=== PATIENT | male | born 1950 | race Caucasian/White ===

== ENCOUNTER 2018-09-24 14:37 | Inpatient (IN) | payer MEDICARE, OTHER ==
[2018-09-24] MEDS ORDERED: Diltiazem 25 MG/5 ML SDV IVPUSH ONE ×2 (15:02→19:39)
--- NOTE | 2018-09-24 15:10 | EDM.PDOC ---
ED HPI GENERAL MEDICAL PROBLEM - General Chief Complaint: Respiratory Problem Stated Complaint: SOB Time Seen by Provider: 09/24/18 14:45 Source of Information: Reports: Patient History Limitations: Reports: No Limitations - History of Present Illness INITIAL COMMENTS - FREE TEXT/NARRATIVE: 67-year-old male, history of COPD who has been O2 dependent in the past has quit smoking since 2004. Over the past 48 hours he's had increasing shortness of breath, pleuritic chest pain with breathing, and weakness. He has a persistent cough which is nonproductive. Denies fevers or chills. Denies nausea or vomiting. He continues to use his nebulizer which provides him temporary benefit. Onset: Gradual Duration: Day(s): (Last several days) Associated Symptoms: Reports: Chest Pain Chest Pain Score (Numeric/FACES): 4 - Related Data Allergies Allergy/AdvReac Type Severity Reaction Status Date / Time indomethacin [From Indocin] AdvReac Nausea Verified 09/24/18 14:48 Home Meds: Home Meds Albuterol Sulfate [Proair Respiclick] 90 mcg IH BID PRN 05/17/16 [History] Aspirin [Halfprin] 81 mg PO DAILY PRN 05/17/16 [History] Budesonide/Formoterol [Symbicort 160-4.5 MCG] 2 inh INH BID 05/17/16 [History] Past Medical History Cardiovascular History: Reports: High Cholesterol, Hypertension Respiratory History: Reports: COPD, Other (See Below) Other Respiratory History: home O2 at night Oncologic (Cancer) History: Reports: Other (See Below) Other Oncologic History: soft palate cancer - Infectious Disease History Infectious Disease History: Reports: Chicken Pox, Measles - Past Surgical History HEENT Surgical History: Reports: Tonsillectomy Musculoskeletal Surgical History: Reports: Knee Replacement Social & Family History - Family History Family Medical History: Noncontributory - Tobacco Use Smoking Status *Q: Former Smoker Used Tobacco, but Quit: Yes Month/Year Tobacco Last Used: 2004 - Caffeine Use Caffeine Use: Reports: Coffee Other Caffeine Use: 25cups - Alcohol Use Days Per Week of Alcohol Use: 5 Number of Drinks Per Day: 12 Total Drinks Per Week: 60 - Recreational Drug Use Recreational Drug Use: No ED ROS GENERAL - Review of Systems Review Of Systems: See Below Constitutional: Reports: Malaise, Weakness. Denies: Fever, Chills HEENT: Denies: Nosebleed, Throat Pain Respiratory: Reports: Shortness of Breath, Cough. Denies: Sputum Cardiovascular: Reports: Chest Pain GI/Abdominal: Denies: Abdominal Pain, Nausea, Vomiting : Reports: No Symptoms Skin: Denies: Cyanosis, Pallor Neurological: Reports: Weakness. Denies: Headache ED EXAM, GENERAL - Physical Exam Exam: See Below Exam Limited By: No Limitations General Appearance: Alert, Mild Distress Head: Atraumatic Respiratory/Chest: Respiratory Distress (Mild increased respiratory effort and distress, O2 saturations 98%), Wheezing (Diffuse expiratory wheezes bilaterally) Cardiovascular: Tachycardia, Irregularly Irregular GI/Abdominal: Soft, Non-Tender Extremities: Normal Inspection. No: Pedal Edema Neurological: Alert, Oriented, No Motor/Sensory Deficits Psychiatric: Anxious Skin Exam: Warm, Dry Course - Vital Signs Last Recorded V/S: Last Vital Signs Temp 96.4 F 09/25/18 04:00 Pulse 79 09/25/18 05:46 Resp 20 09/25/18 05:46 BP 99/42 L 09/25/18 05:46 Pulse Ox 95 09/25/18 05:46 - Orders/Labs/Meds Orders: Active Orders 24 hr Category Date Time Status Azithromycin [Zithromax] Med 09/24/18 17:00 Active 500 mg PO DAILY Diltiazem [Cardizem] 100 mg Med 09/24/18 15:45 Active Sodium Chloride 0.9% [Normal Saline] 100 ml IV TITRATE EKG 12 Lead [EK] Routine Ther 09/24/18 15:02 Stop Req Medication Orders Acetaminophen (Tylenol) 650 mg PO Q4H PRN PRN Reason: Pain (Mild 1-3)/fever Last Admin: 09/24/18 19:44 Dose: 650 mg Albuterol (Proventil Neb Soln) 2.5 mg NEB Q4H PRN PRN Reason: Shortness Of Breath/wheezing Last Admin: 09/25/18 03:19 Dose: 2.5 mg Admin: 09/24/18 18:35 Dose: 2.5 mg Albuterol/Ipratropium (Duoneb 3.0-0.5 Mg/3 Ml) 3 ml NEB QIDRT [facility]IVIER Last Admin: 09/24/18 21:05 Dose: 3 ml Azithromycin (Zithromax) 500 mg PO DAILY [facility] Last Admin: 09/24/18 17:48 Dose: 500 mg Benzonatate (Tessalon Perles) 100 mg PO TID PRN PRN Reason: Cough Last Admin: 09/24/18 18:34 Dose: 100 mg Enoxaparin Sodium (Lovenox) 40 mg SUBCUT Q24H [facility] Guaifenesin/Dextromethorphan (Robitussin Dm) 10 ml PO Q4H PRN PRN Reason: Cough Last Admin: 09/25/18 03:17 Dose: 10 ml Admin: 09/24/18 23:10 Dose: 10 ml Diltiazem HCl 100 mg/ Sodium (Chloride) 100 mls @ 5 mls/hr IV TITRATE OLIVIER; Protocol Last Titration: 09/25/18 06:16 Dose: 0 mg/hr, 0 mls/hr Titration: 09/25/18 05:45 Dose: 3 mg/hr, 3 mls/hr Titration: 09/25/18 03:07 Dose: 5 mg/hr, 5 mls/hr Titration: 09/25/18 01:09 Dose: 10 mg/hr, 10 mls/hr Admin: 09/24/18 23:39 Dose: 15 mg/hr, 15 mls/hr Titration: 09/24/18 23:39 Dose: 15 mg/hr, 15 mls/hr Titration: 09/24/18 20:00 Dose: 15 mg/hr, 15 mls/hr Titration: 09/24/18 19:00 Dose: 10 mg/hr, 10 mls/hr Admin: 09/24/18 17:32 Dose: 5 mg/hr, 5 mls/hr Ceftriaxone Sodium 2 gm/ (Sodium Chloride) 50 mls @ 100 mls/hr IV Q24H [facility] Last Admin: 09/24/18 17:56 Dose: 100 mls/hr Sodium Chloride (Normal Saline) 1,000 mls @ 100 mls/hr IV ASDIRECTED [facility] Last Admin: 09/24/18 23:15 Dose: 100 mls/hr Ibuprofen (Motrin) 600 mg PO Q6H PRN PRN Reason: Pain/Fever Last Admin: 09/24/18 18:39 Dose: 600 mg Lorazepam (Ativan) 0.5 mg PO Q4H PRN PRN Reason: Anxiety Last Admin: 09/25/18 03:35 Dose: 0.5 mg Admin: 09/24/18 21:02 Dose: 0.5 mg Morphine Sulfate (Morphine) 4 mg IVPUSH Q4H PRN PRN Reason: air hunger Last Admin: 09/25/18 03:22 Dose: 4 mg Admin: 09/24/18 23:09 Dose: 4 mg Ondansetron HCl (Zofran Odt) 4 mg PO Q6H PRN PRN Reason: Nausea able to take PO Prednisone (Prednisone) 20 mg PO BIDAC OLIVIER Senna/Docusate Sodium (Senna Plus) 1 tab PO BID PRN PRN Reason: Constipation Labs: Laboratory Tests 09/24/18 09/24/18 Range/Units 15:10 15:10 WBC 8.3 (4.5-11.0) K/uL RBC 4.56 (4.30-5.90) M/uL Hgb 12.6 D (12.0-15.0) g/dL Hct 39.9 L (40.0-54.0) % MCV 88 (80-98) fL MCH 28 (27-31) pg MCHC 32 (32-36) % Plt Count 436 H (150-400) K/uL Neut % (Auto) 70 H (36-66) % Lymph % (Auto) 17 L (24-44) % Martin % (Auto) 11 H (2-6) % Eos % (Auto) 2 (2-4) % Baso % (Auto) 1 (0-1) % Sodium 136 L (140-148) mmol/L Potassium 4.0 (3.6-5.2) mmol/L Chloride 100 (100-108) mmol/L Carbon Dioxide 25 (21-32) mmol/L Anion Gap 15.0 H (5.0-14.0) mmol/L BUN 10 (7-18) mg/dL Creatinine 1.1 (0.8-1.3) mg/dL Est Cr Clr Drug Dosing 71.63 mL/min Estimated GFR (MDRD) > 60 (>60) Glucose 109 H (74-106) mg/dL Calcium 9.2 (8.5-10.1) mg/dL Total Bilirubin 0.8 D (0.2-1.0) mg/dL AST 16 (15-37) U/L ALT 13 (12-78) U/L Alkaline Phosphatase 69 (46-116) U/L Troponin I 0.087 H* (0.000-0.056) ng/mL Total Protein 7.7 (6.4-8.2) g/dL Albumin 3.0 L (3.4-5.0) g/dL Globulin 4.7 H (2.3-3.5) g/dL Albumin/Globulin Ratio 0.6 L (1.2-2.2) TSH, Ultra Sensitive 0.893 (0.358-3.740) uIU/mL Meds: Medications Generic Name Dose Route Start Last Admin Trade Name Freq PRN Reason Stop Dose Admin Acetaminophen 650 mg 09/24/18 17:10 09/24/18 19:44 Tylenol PO 650 mg Q4H PRN Administration Pain (Mild 1-3)/fever Albuterol 2.5 mg 09/24/18 17:10 09/25/18 03:19 Proventil Neb Soln NEB 2.5 mg Q4H PRN Administration Shortness Of Breath/wheezing Albuterol/Ipratropium 3 ml 09/24/18 21:00 09/24/18 21:05 Duoneb 3.0-0.5 Mg/3 Ml NEB 3 ml QIDRT OLIVIER Administration Azithromycin 500 mg 09/24/18 17:00 09/24/18 17:48 Zithromax PO 500 mg DAILY [facility] Administration Benzonatate 100 mg 09/24/18 17:10 09/24/18 18:34 Tessalon Perles PO 100 mg TID PRN Administration Cough Enoxaparin Sodium 40 mg 09/25/18 18:00 Lovenox SUBCUT Q24H [facility] Guaifenesin/Dextromethorphan 10 ml 09/24/18 17:10 09/25/18 03:17 Robitussin Dm PO 10 ml Q4H PRN Administration Cough Diltiazem HCl 100 mg/ Sodium 100 mls @ 5 mls/hr 09/24/18 15:45 09/25/18 06:16 Chloride IV 0 mg/hr TITRATE OLIVIER 0 mls/hr Titration Protocol 5 MG/HR Ceftriaxone Sodium 2 gm/ 50 mls @ 100 mls/hr 09/24/18 18:00 09/24/18 17:56 Sodium Chloride IV 100 mls/hr Q24H OLIVIER Administration Sodium Chloride 1,000 mls @ 100 mls/hr 09/24/18 17:10 09/24/18 23:15 Normal Saline IV 100 mls/hr ASDIRECTED OLIVIER Administration Ibuprofen 600 mg 09/24/18 17:10 09/24/18 18:39 Motrin PO 600 mg Q6H PRN Administration Pain/Fever Lorazepam 0.5 mg 09/24/18 20:42 09/25/18 03:35 Ativan PO 0.5 mg Q4H PRN Administration Anxiety Morphine Sulfate 4 mg 09/24/18 20:42 09/25/18 03:22 Morphine IVPUSH 4 mg Q4H PRN Administration air hunger Ondansetron HCl 4 mg 09/24/18 17:10 Zofran Odt PO Q6H PRN Nausea able to take PO Prednisone 20 mg 09/25/18 07:30 Prednisone PO BIDAC OLIVIER Senna/Docusate Sodium 1 tab 09/24/18 17:10 Senna Plus PO BID PRN Constipation Discontinued Medications Generic Name Dose Route Start Last Admin Trade Name Freq PRN Reason Stop Dose Admin Albuterol/Ipratropium 3 ml 09/24/18 15:31 09/24/18 15:39 Duoneb 3.0-0.5 Mg/3 Ml NEB 09/24/18 15:32 3 ml ONETIME ONE Administration Diltiazem HCl 25 mg 09/24/18 15:02 09/24/18 15:12 Diltiazem IVPUSH 09/24/18 15:03 25 mg ONETIME ONE Administration Diltiazem HCl 5 mg 09/24/18 19:39 09/24/18 19:56 Diltiazem IVPUSH 09/24/18 19:40 5 mg ONETIME ONE Administration Enoxaparin Sodium 40 mg 09/24/18 18:00 09/24/18 17:49 Lovenox SUBCUT 40 mg DAILY [facility] Administration Sodium Chloride 1,000 mls @ 250 mls/hr 09/24/18 15:15 09/24/18 15:12 Normal Saline IV 250 mls/hr ASDIRECTED [facility] Administration Prednisone 40 mg 09/24/18 16:44 09/24/18 17:47 Prednisone PO 09/24/18 16:45 40 mg ONETIME ONE Administration - Re-Assessments/Exams Free Text/Narrative Re-Assessment/Exam: 09/24/18 15:12 EKG will be done, IV started and the patient will receive treatment for atrial fibrillation with rapid ventricular response as well as COPD exacerbation and reactive airways. CBC, CMP, troponin obtained as well as a TSH, and then given 25 mg of IV Cardizem. After rate is reduced, a DuoNeb will be given. One view chest x-ray planned. 09/24/18 15:45 EKG confirmed atrial fibrillation. One view chest x-ray showed hyperinflation but no infiltrate effusion or pneumothorax. Troponin returned 0.087, he had excellent rate control with the 25 mg of IV Cardizem but after the nebulizer started to increase his rate again. A Cardizem drip was then started at 5 mg an hour. His case was discussed with Dr. Park of the hospitalist service, he'll evaluate the patient for likely admission. Departure - Departure Time of Disposition: 17:10 Disposition: Admitted As Inpatient 64 Condition: Fair Clinical Impression: Atrial fibrillation with RVR, COPD exacerbation - Discharge Information - My Orders Last 24 Hours: My Active Orders 09/24/18 15:02 EKG 12 Lead [EK] Routine 09/24/18 15:45 Diltiazem [Cardizem] 100 mg Sodium Chloride 0.9% [Normal Saline] 100 ml IV TITRATE - Assessment/Plan Last 24 Hours: My Active Orders 09/24/18 15:02 EKG 12 Lead [EK] Routine 09/24/18 15:45 Diltiazem [Cardizem] 100 mg Sodium Chloride 0.9% [Normal Saline] 100 ml IV TITRATE
[2018-09-24] MEDS ORDERED: Sodium Chloride 0.9% 1,000 ML IV SCH (15:15)
[2018-09-24] MEDS ORDERED: Albuterol/Ipratropium 3.0-0.5 MG/3 ML Neb Soln NEB ONE (15:31)
--- NOTE | 2018-09-24 16:06 | CRLCR ---
CHEST 1 VIEW AP INDICATION: Dyspnea IMPRESSION: Normal heart size and vascular pattern. No pulmonary consolidation. No pneumothorax or pleural effusion. ECG Monitor leads projected over the patient. FINDINGS: Lordotic views obtained. Symmetric bronchial wall thickening are interstitial reticulation at the bases. This could be related to the fibrotic or obstructive disease. Lungs appear to be somewhat hyper aerated. Cardiovascular silhouette is normal. Dictated by Abimael Bonilla MD @ Sep 24 2018 4:06PM Signed by Dr. Abimael Bonilla @ Sep 24 2018 4:06PM
[2018-09-24] MEDS ORDERED: predniSONE 20 MG Tab PO ONE (16:44)
--- NOTE | 2018-09-24 17:00 | PCM.HP ---
H&P History of Present Illness - General Date of Service: 09/24/18 Admit Problem/Dx: Admission Diagnosis/Problem Admission Diagnosis/Problem Acute exacerbation of chronic obstructive airways disease - History of Present Illness Initial Comments - Free Text/Narative: Anthony presents to the emergency room today with 4-5 days of worsening shortness of breath. He reports that he has been short of breath for a long time but much more short of breath last few days. He has a productive cough with moderate sputum production, especially when he lays down. He is now short of breath with minimal activity and takes several minutes to recover after walking 10 feet or less. He has mild to moderate pleuritic type chest pain in the anterior chest. This is worse when he is trying to catch his breath. Minimal pain when he is taking shallow breath. Please tried aspirin at home but that hasn't helped his pain. Moving makes it worse. Appetite has been good. He hasn't had any fevers. No change in bowel or bladder habits. No complaints of nausea. No headaches or lower extremity edema. No sick contacts. No palpitations. Workup in the emergency room revealed atrial fibrillation with a rapid ventricular response. Heart rate was up to the 180s at times. It has slowed down after a diltiazem bolus. He is also wheezing and in mild respiratory distress. He has received a DuoNeb. He will be admitted for management of atrial fibrillation and bronchitis with a COPD exacerbation. Troponin level was very mildly elevated at 0.087. - Related Data Allergies/Adverse Reactions: Allergies Allergy/AdvReac Type Severity Reaction Status Date / Time indomethacin [From Indocin] AdvReac Nausea Verified 09/24/18 14:48 Home Medications: Home Meds Albuterol Sulfate [Proair Respiclick] 90 mcg IH BID PRN 05/17/16 [History] Aspirin [Halfprin] 81 mg PO DAILY PRN 05/17/16 [History] Budesonide/Formoterol [Symbicort 160-4.5 MCG] 2 inh INH BID 05/17/16 [History] Past Medical History Cardiovascular History: Reports: High Cholesterol, Hypertension Respiratory History: Reports: COPD, Other (See Below) Other Respiratory History: home O2 at night Oncologic (Cancer) History: Reports: Other (See Below) Other Oncologic History: soft palate cancer - Infectious Disease History Infectious Disease History: Reports: Chicken Pox, Measles - Past Surgical History HEENT Surgical History: Reports: Tonsillectomy Musculoskeletal Surgical History: Reports: Knee Replacement Social & Family History - Family History Family Medical History: Noncontributory - Tobacco Use Smoking Status *Q: Former Smoker Used Tobacco, but Quit: Yes Month/Year Tobacco Last Used: 2004 - Caffeine Use Caffeine Use: Reports: Coffee Other Caffeine Use: 25cups - Alcohol Use Days Per Week of Alcohol Use: 5 Number of Drinks Per Day: 12 Total Drinks Per Week: 60 - Recreational Drug Use Recreational Drug Use: No H&P Review of Systems - Review of Systems: Review Of Systems: See Below Free Text/Narrative: A complete 12 point review of systems was obtained. Pertinent positives and negatives are noted in the history of present illness. All other systems were reviewed and were negative except as noted. Exam - Exam Exam: See Below - Vital Signs Vital Signs: Last Vital Signs Temp 36.2 C 09/24/18 14:41 Pulse 166 H 09/24/18 14:41 Resp BP 127/94 H 09/24/18 14:41 Pulse Ox 98 09/24/18 14:41 Weight: 88.451 kg - Exam Quality Assessment: No: Supplemental Oxygen General: Alert, Oriented, Cooperative, Mild Distress (Increased work of breathing) HEENT: Conjunctiva Clear. No: Mucosa Moist & [place] (dry), Scleral Icterus Neck: Supple, Trachea Midline. No: Lymphadenopathy Lungs: Rhonchi (Rhonchorous upper airway sounds), Wheezing (Diffuse expiratory wheezing). No: Normal Respiratory Effort (Increased work of breathing) Cardiovascular: Irregular Rhythm, Tachycardia. No: Systolic Murmur GI/Abdominal Exam: Normal Bowel Sounds, Soft, Non-Tender, No Distention Back Exam: Normal Inspection, Full Range of Motion Extremities: No Pedal Edema. No: Increased Warmth Peripheral Pulses: 2+: Dorsalis Pedis (L), Dorsalis Pedis (R) Skin: Warm, Dry Neuro Extensive - Mental Status: Alert, Oriented x3, Nl Response to Commands Neuro Extensive - Motor, Sensory, Reflexes: No: Dysarthria, Abnormal Motor, Tremor Psychiatric: Alert, Normal Affect - Patient Data Lab Results Last 24 hrs: Laboratory Results - last 24 hr 09/24/18 09/24/18 Range/Units 15:10 15:10 WBC 8.3 (4.5-11.0) K/uL RBC 4.56 (4.30-5.90) M/uL Hgb 12.6 D (12.0-15.0) g/dL Hct 39.9 L (40.0-54.0) % MCV 88 (80-98) fL MCH 28 (27-31) pg MCHC 32 (32-36) % Plt Count 436 H (150-400) K/uL Neut % (Auto) 70 H (36-66) % Lymph % (Auto) 17 L (24-44) % [place] % (Auto) 11 H (2-6) % Eos % (Auto) 2 (2-4) % Baso % (Auto) 1 (0-1) % Sodium 136 L (140-148) mmol/L Potassium 4.0 (3.6-5.2) mmol/L Chloride 100 (100-108) mmol/L Carbon Dioxide 25 (21-32) mmol/L Anion Gap 15.0 H (5.0-14.0) mmol/L BUN 10 (7-18) mg/dL Creatinine 1.1 (0.8-1.3) mg/dL Est Cr Clr Drug Dosing 71.63 mL/min Estimated GFR (MDRD) > 60 (>60) Glucose 109 H (74-106) mg/dL Calcium 9.2 (8.5-10.1) mg/dL Total Bilirubin 0.8 D (0.2-1.0) mg/dL AST 16 (15-37) U/L ALT 13 (12-78) U/L Alkaline Phosphatase 69 (46-116) U/L Troponin I 0.087 H* (0.000-0.056) ng/mL Total Protein 7.7 (6.4-8.2) g/dL Albumin 3.0 L (3.4-5.0) g/dL Globulin 4.7 H (2.3-3.5) g/dL Albumin/Globulin Ratio 0.6 L (1.2-2.2) TSH, Ultra Sensitive 0.893 (0.358-3.740) uIU/mL Result Diagrams: 09/24/18 15:10 09/24/18 15:10 Imaging Impressions Last 24 hrs: chest x-ray - images personally reviewed - there is evidence for hyperinflation consistent with emphysema but no mass, effusion or infiltrate. Heart size is normal. EKG INTERPRETATION EKG Date: 09/24/18 Rhythm: A-Fib Rate (Beats/Min): 166 [place]: Normal P-Wave: Variable QRS: Normal ST-T: Normal QT: Normal *Q Meaningful Use (ADM) - VTE Risk Assess *Q Each Risk Factor Represents 1 Point: Serious lung disease including pneumonia, Abnormal Pulmonary Function (COPD) Total Score 1 Point Risk Factors: 2 Each Risk Factor Represents 2 Points: Age 60 - 74 Years, Malignancy (present or previous) Total Score 2 Point Risk Factors: 4 Each Risk Factor Represents 3 Points: None Total Score 3 Point Risk Factors: 0 Each Risk Factor Represents 5 Points: None Total Score 5 Point Risk Factors: 0 Venous Thromboembolism Risk Factor Score *Q: 6 - Problem List (1) Acute bronchitis SNOMED Code(s): 34936470 ICD Code: J20.9 - ACUTE BRONCHITIS, UNSPECIFIED Status: Acute Current Visit: Yes Qualifiers: Bronchitis organism: unspecified organism Qualified Code(s): J20.9 - Acute bronchitis, unspecified (2) Atrial fibrillation with RVR SNOMED Code(s): 411234327868923 ICD Code: I48.91 - UNSPECIFIED ATRIAL FIBRILLATION Status: Acute Current Visit: Yes (3) COPD exacerbation SNOMED Code(s): 893543198 ICD Code: J44.1 - CHRONIC OBSTRUCTIVE PULMONARY DISEASE W (ACUTE) EXACERBATION Status: Acute Current Visit: Yes Problem List Initiated/Reviewed/Updated: Yes Orders Last 24hrs: Active Orders 24 hr Category Date Time Status Patient Status Manage Transfer [TRANSFER] Routine ADT 09/24/18 16:45 Active EKG Documentation Completion [RC] ASDIRECTED Care 09/24/18 15:02 Active RT Aerosol Therapy [RC] ASDIRECTED Care 09/24/18 15:31 Active Azithromycin [Zithromax] Med 09/24/18 17:00 Active 500 mg PO DAILY Diltiazem [Cardizem] 100 mg Med 09/24/18 15:45 Active Sodium Chloride 0.9% [Normal Saline] 100 ml IV TITRATE Sodium Chloride 0.9% [Normal Saline] 1,000 ml Med 09/24/18 15:15 Active IV ASDIRECTED Resuscitation Status Routine Resus Stat 09/24/18 16:46 Ordered EKG 12 Lead [EK] Routine Ther 09/24/18 15:02 Ordered Medication Orders Azithromycin (Zithromax) 500 mg PO DAILY [facility] Sodium Chloride (Normal Saline) 1,000 mls @ 250 mls/hr IV ASDIRECTED [facility] Last Admin: 09/24/18 15:12 Dose: 250 mls/hr Diltiazem HCl 100 mg/ Sodium (Chloride) 100 mls @ 5 mls/hr IV TITRATE [facility]; Protocol Assessment/Plan Comment:: ASSESSMENT AND PLAN - Acute bronchitis - complicated by acute exacerbation of COPD. Not currently hypoxic but he is working hard to breathe. No fevers. Bacterial source is suspected with increase and change in sputum. Given his significant dyspnea with any exertion is not safe for outpatient management. He is at high risk for declining respiratory status. -Antibiotic coverage with azithromycin and ceftriaxone -Prednisone 40 mg now and 20 mg twice a day starting tomorrow -Scheduled and as needed nebulizers -Sputum culture if able -Supplement oxygen if needed -Symptomatic management of cough Atrial fibrillation with rapid ventricular response - No history of atrial fibrillation. Duration unclear at this time so not a good candidate for cardioversion. He did slow down with diltiazem bolus. CHADSS-VASC is 0. -Continue diltiazem infusion, titrate as needed -Echo when available Maintenance issues - - DVT prophylaxis - enoxaparin - GI prophylaxis - not indicated - Nutrition - regular diet - [place] catheter - not indicated CODE STATUS - full code Admission justification - This patient will be admitted for inpatient services and is medically appropriate meeting medical necessity for inpatient admission as outlined in my documentation. I reasonably expect the patient will require inpatient services that span a period time over 2 midnights. I reasonably expect this patient to be discharged or transferred within 96 hours [facility]. Disposition - I would anticipate discharge home after the hospital stay [facility] [place] Zaheer Park M.D.
[2018-09-24] MEDS ORDERED: Ondansetron 4 MG Tab.DIS PO PRN (17:10)
[2018-09-24] MEDS ORDERED: Acetaminophen 325 MG Tab PO PRN (17:10)
[2018-09-24] MEDS: Diltiazem 100 MG in Sodium Chloride 0.9% 100 ML IV SCH ×2 (17:32→23:39)
[2018-09-24] MEDS: Azithromycin 250 MG Tab PO SCH (17:48)
[2018-09-24] MEDS: cefTRIAXone 2 GM in Sodium Chloride 0.9% 50 ML IV SCH (17:56)
[2018-09-24] MEDS ORDERED: Enoxaparin 40 MG/0.4 ML Syringe SUBCUT SCH (18:00)
[2018-09-24] MEDS: Benzonatate 100 MG Cap PO PRN (18:34)
[2018-09-24] MEDS: Albuterol 0.083% 2.5 MG/3 ML Neb Soln NEB PRN (18:35)
[2018-09-24] MEDS: Ibuprofen 600 MG Tab PO PRN (18:39)
[2018-09-24] MEDS: LORazepam 0.5 MG Tab PO PRN (21:02)
[2018-09-24] MEDS: Albuterol/Ipratropium 3.0-0.5 MG/3 ML Neb Soln NEB SCH (21:05)
[2018-09-24] MEDS: Morphine 4 MG/ML Syringe IVPUSH PRN (23:09)
[2018-09-24] MEDS: guaiFENesin/Dextromethorphan 100-10 MG/5 ML Soln 10 ML Cup PO PRN (23:10)
[2018-09-24] MEDS: Sodium Chloride 0.9% 1,000 ML IV SCH (23:15)
[2018-09-25] MEDS: guaiFENesin/Dextromethorphan 100-10 MG/5 ML Soln 10 ML Cup PO PRN ×2 (03:17→20:47)
[2018-09-25] MEDS: Albuterol 0.083% 2.5 MG/3 ML Neb Soln NEB PRN ×2 (03:19→23:38)
[2018-09-25] MEDS: Morphine 4 MG/ML Syringe IVPUSH PRN ×2 (03:22→22:38)
[2018-09-25] MEDS: LORazepam 0.5 MG Tab PO PRN ×2 (03:35→20:47)
[2018-09-25] MEDS: Albuterol/Ipratropium 3.0-0.5 MG/3 ML Neb Soln NEB SCH ×4 (07:47→20:47)
--- NOTE | 2018-09-25 08:33 | PCM.PN ---
- General Info Date of Service: 09/25/18 Subjective Update: There were no acute events overnight. He did have an episode with increased respiratory rate and increased shortness of breath after walking a short distance to the bathroom. He did convert to a normal sinus rhythm overnight and has remained there since that time. The diltiazem infusion has been discontinued. His shortness of breath is better today compared to yesterday and but he still has mild increased work of breathing. Still coughing but this seems better today. Gram stain from the sputum sample revealed moderate gram- positive cocci as well as moderate mucus. He did have a fever last night. Functional Status: Reports: Pain Controlled, Tolerating Diet - Review of Systems General: Reports: Fever, Weakness Pulmonary: Reports: Shortness of Breath, Cough - Patient Data Vitals - Most Recent: Last Vital Signs Temp 35.8 C 09/25/18 04:00 Pulse 74 09/25/18 07:51 Resp 20 09/25/18 05:46 BP 99/42 L 09/25/18 05:46 Pulse Ox 98 09/25/18 07:51 Weight - Most Recent: 88.45 kg I&O - Last 24 Hours: Intake & Output 09/24/18 09/25/18 09/25/18 22:59 06:59 14:59 Intake Total 1261 Output Total 750 Balance 511 Lab Results Last 24 Hours: Laboratory Results - last 24 hr 09/24/18 09/24/18 09/24/18 Range/Units 15:10 15:10 20:08 WBC 8.3 (4.5-11.0) K/uL RBC 4.56 (4.30-5.90) M/uL Hgb 12.6 D (12.0-15.0) g/dL Hct 39.9 L (40.0-54.0) % MCV 88 (80-98) fL MCH 28 (27-31) pg MCHC 32 (32-36) % Plt Count 436 H (150-400) K/uL Neut % (Auto) 70 H (36-66) % Lymph % (Auto) 17 L (24-44) % [place] % (Auto) 11 H (2-6) % Eos % (Auto) 2 (2-4) % Baso % (Auto) 1 (0-1) % Sodium 136 L (140-148) mmol/L Potassium 4.0 (3.6-5.2) mmol/L Chloride 100 (100-108) mmol/L Carbon Dioxide 25 (21-32) mmol/L Anion Gap 15.0 H (5.0-14.0) mmol/L BUN 10 (7-18) mg/dL Creatinine 1.1 (0.8-1.3) mg/dL Est Cr Clr Drug Dosing 71.63 mL/min Estimated GFR (MDRD) > 60 (>60) Glucose 109 H (74-106) mg/dL Calcium 9.2 (8.5-10.1) mg/dL Total Bilirubin 0.8 D (0.2-1.0) mg/dL AST 16 (15-37) U/L ALT 13 (12-78) U/L Alkaline Phosphatase 69 (46-116) U/L Troponin I 0.087 H* 0.188 H* (0.000-0.056) ng/mL Total Protein 7.7 (6.4-8.2) g/dL Albumin 3.0 L (3.4-5.0) g/dL Globulin 4.7 H (2.3-3.5) g/dL Albumin/Globulin Ratio 0.6 L (1.2-2.2) TSH, Ultra Sensitive 0.893 (0.358-3.740) uIU/mL 09/25/18 09/25/18 09/25/18 Range/Units 04:33 04:33 04:33 WBC 4.4 L (4.5-11.0) K/uL RBC 4.03 L (4.30-5.90) M/uL Hgb 11.1 L (12.0-15.0) g/dL Hct 35.8 L (40.0-54.0) % MCV 89 (80-98) fL MCH 28 (27-31) pg MCHC 31 L (32-36) % Plt Count 353 (150-400) K/uL Neut % (Auto) (36-66) % Lymph % (Auto) (24-44) % [place] % (Auto) (2-6) % Eos % (Auto) (2-4) % Baso % (Auto) (0-1) % Sodium 134 L (140-148) mmol/L Potassium 3.8 (3.6-5.2) mmol/L Chloride 101 (100-108) mmol/L Carbon Dioxide 21 (21-32) mmol/L Anion Gap 15.8 H (5.0-14.0) mmol/L BUN 14 (7-18) mg/dL Creatinine 1.4 H (0.8-1.3) mg/dL Est Cr Clr Drug Dosing 54.66 mL/min Estimated GFR (MDRD) 50 L (>60) Glucose 235 H (74-106) mg/dL Calcium 8.9 (8.5-10.1) mg/dL Total Bilirubin (0.2-1.0) mg/dL AST (15-37) U/L ALT (12-78) U/L Alkaline Phosphatase (46-116) U/L Troponin I 0.176 H* (0.000-0.056) ng/mL Total Protein (6.4-8.2) g/dL Albumin (3.4-5.0) g/dL Globulin (2.3-3.5) g/dL Albumin/Globulin Ratio (1.2-2.2) TSH, Ultra Sensitive (0.358-3.740) uIU/mL Jose Results Last 24 Hours: Microbiology 09/24/18 17:10 Gram Stain - Final Sputum - Expectorated Med Orders - Current: Current Medications Acetaminophen (Tylenol) 650 mg PO Q4H PRN PRN Reason: Pain (Mild 1-3)/fever Last Admin: 09/24/18 19:44 Dose: 650 mg Albuterol (Proventil Neb Soln) 2.5 mg NEB Q4H PRN PRN Reason: Shortness Of Breath/wheezing Last Admin: 09/25/18 03:19 Dose: 2.5 mg Albuterol/Ipratropium (Duoneb 3.0-0.5 Mg/3 Ml) 3 ml NEB QIDRT [facility] Last Admin: 09/25/18 07:47 Dose: 3 ml Azithromycin (Zithromax) 500 mg PO DAILY [facility] Last Admin: 09/24/18 17:48 Dose: 500 mg Benzonatate (Tessalon Perles) 100 mg PO TID PRN PRN Reason: Cough Last Admin: 09/24/18 18:34 Dose: 100 mg Enoxaparin Sodium (Lovenox) 40 mg SUBCUT Q24H [facility] Guaifenesin/Dextromethorphan (Robitussin Dm) 10 ml PO Q4H PRN PRN Reason: Cough Last Admin: 09/25/18 03:17 Dose: 10 ml Diltiazem HCl 100 mg/ Sodium (Chloride) 100 mls @ 5 mls/hr IV TITRATE [facility]; Protocol Last Titration: 09/25/18 06:16 Dose: 0 mg/hr, 0 mls/hr Ceftriaxone Sodium 2 gm/ (Sodium Chloride) 50 mls @ 100 mls/hr IV Q24H [facility] Last Admin: 09/24/18 17:56 Dose: 100 mls/hr Sodium Chloride (Normal Saline) 1,000 mls @ 100 mls/hr IV ASDIRECTED [facility] Last Admin: 09/24/18 23:15 Dose: 100 mls/hr Ibuprofen (Motrin) 600 mg PO Q6H PRN PRN Reason: Pain/Fever Last Admin: 09/24/18 18:39 Dose: 600 mg Lorazepam (Ativan) 0.5 mg PO Q4H PRN PRN Reason: Anxiety Last Admin: 09/25/18 03:35 Dose: 0.5 mg Morphine Sulfate (Morphine) 4 mg IVPUSH Q4H PRN PRN Reason: air hunger Last Admin: 09/25/18 03:22 Dose: 4 mg Ondansetron HCl (Zofran Odt) 4 mg PO Q6H PRN PRN Reason: Nausea able to take PO Prednisone (Prednisone) 20 mg PO BIDAC [facility] Senna/Docusate Sodium (Senna Plus) 1 tab PO BID PRN PRN Reason: Constipation Discontinued Medications Albuterol/Ipratropium (Duoneb 3.0-0.5 Mg/3 Ml) 3 ml NEB ONETIME ONE Stop: 09/24/18 15:32 Last Admin: 09/24/18 15:39 Dose: 3 ml Diltiazem HCl (Diltiazem) 25 mg IVPUSH ONETIME ONE Stop: 09/24/18 15:03 Last Admin: 09/24/18 15:12 Dose: 25 mg Diltiazem HCl (Diltiazem) 5 mg IVPUSH ONETIME ONE Stop: 09/24/18 19:40 Last Admin: 09/24/18 19:56 Dose: 5 mg Enoxaparin Sodium (Lovenox) 40 mg SUBCUT DAILY [facility] Last Admin: 09/24/18 17:49 Dose: 40 mg Sodium Chloride (Normal Saline) 1,000 mls @ 250 mls/hr IV ASDIRECTED [facility] Last Admin: 09/24/18 15:12 Dose: 250 mls/hr Prednisone (Prednisone) 40 mg PO ONETIME ONE Stop: 09/24/18 16:45 Last Admin: 09/24/18 17:47 Dose: 40 mg - Exam Quality Assessment: No: Supplemental Oxygen General: Alert, Oriented, Cooperative, No Acute Distress Neck: Supple Lungs: Rhonchi, Wheezing. No: Normal Respiratory Effort (mild increase in work of breathing ) Cardiovascular: Regular Rate, Regular Rhythm GI/Abdominal Exam: Soft, No Distention Extremities: No Pedal Edema. No: Increased Warmth Skin: Warm, Dry Psy/Mental Status: Alert, Normal Affect - Problem List & Annotations (1) Acute bronchitis SNOMED Code(s): 79270790 Code(s): J20.9 - ACUTE BRONCHITIS, UNSPECIFIED Status: Acute Current Visit: Yes Qualifiers: Bronchitis organism: unspecified organism Qualified Code(s): J20.9 - Acute bronchitis, unspecified (2) Atrial fibrillation with RVR SNOMED Code(s): 196135606173385 Code(s): I48.91 - UNSPECIFIED ATRIAL FIBRILLATION Status: Acute Current Visit: Yes (3) COPD exacerbation SNOMED Code(s): 813662330 Code(s): J44.1 - CHRONIC OBSTRUCTIVE PULMONARY DISEASE W (ACUTE) EXACERBATION Status: Acute Current Visit: Yes - Problem List Review Problem List Initiated/Reviewed/Updated: Yes - My Orders Last 24 Hours: My Active Orders 09/24/18 16:46 Resuscitation Status Routine 09/24/18 17:00 Azithromycin [Zithromax] 500 mg PO DAILY 09/24/18 17:10 Patient Status [ADT] Routine Cardiac Monitoring [RC] CONTINUOUS Intake and Output [RC] QSHIFT Notify Provider Vital Signs [RC] ASDIRECTED Oxygen Therapy [RC] PRN Pulse Oximetry [RC] CONTINUOUS RT Aerosol Therapy [RC] ASDIRECTED Up With Assistance [RC] ASDIRECTED VTE/DVT Education [RC] Per Unit Routine Vital Signs [RC] Q2H CULTURE RESPIRATORY + SMEAR [RM] Stat Acetaminophen [Tylenol] 650 mg PO Q4H PRN Albuterol [Proventil Neb Soln] 2.5 mg NEB Q4H PRN Benzonatate [Tessalon Perles] 100 mg PO TID PRN Dextromethorphan/guaiFENesin [Robitussin DM] 10 ml PO Q4H PRN Docusate Sodium/Sennosides [Senna Plus] 1 tab PO BID PRN Ibuprofen [Motrin] 600 mg PO Q6H PRN Ondansetron [Zofran ODT] 4 mg PO Q6H PRN Sodium Chloride 0.9% [Normal Saline] 1,000 ml IV ASDIRECTED 09/24/18 18:00 cefTRIAXone [Rocephin] 2 gm Sodium Chloride 0.9% [Normal Saline] 50 ml IV Q24H 09/24/18 20:42 LORazepam [Ativan] 0.5 mg PO Q4H PRN Morphine 4 mg IVPUSH Q4H PRN 09/24/18 21:00 Albuterol/Ipratropium [DuoNeb 3.0-0.5 MG/3 ML] 3 ml NEB QIDRT 09/24/18 Dinner Regular Diet [DIET] 09/25/18 07:30 predniSONE 20 mg PO BIDAC 09/25/18 18:00 Enoxaparin [Lovenox] 40 mg SUBCUT Q24H 09/26/18 05:00 BASIC METABOLIC PANEL,BMP [CHEM] Timed CBC W/O DIFF,HEMOGRAM [HEME] Timed (1) TROPONIN I [CHEM] Timed - Plan Plan:: ASSESSMENT AND PLAN - Acute bronchitis - complicated by acute exacerbation of COPD. he did require supplemental oxygen overnight. Short of breath with any activity. Breathing improved today but not back to baseline. He did have a fever overnight. Sputum culture with gram-positive cocci. -Antibiotic coverage with azithromycin and ceftriaxone -Prednisone 20 mg twice daily with meals -Scheduled and as needed nebulizers -Follow-up sputum culture -Supplement oxygen as needed -Symptomatic management of cough Atrial fibrillation with rapid ventricular response - No history of atrial fibrillation. CHADSS-VASC is 0. Now in sinus rhythm and off diltiazem. -Cardiac monitoring -Echo tomorrow Maintenance issues - - DVT prophylaxis - enoxaparin - GI prophylaxis - not indicated - Nutrition - regular diet Disposition - I would anticipate discharge home after the hospital stay [facility] [place] M.D.
[2018-09-25] MEDS: predniSONE 20 MG Tab PO SCH ×2 (08:53→16:26)
[2018-09-25] MEDS: Azithromycin 250 MG Tab PO SCH (08:54)
[2018-09-25] MEDS: Sodium Chloride 0.9% 1,000 ML IV SCH ×2 (09:18→20:30)
[2018-09-25] MEDS: Ibuprofen 600 MG Tab PO PRN ×2 (09:53→20:47)
[2018-09-25] MEDS: Benzonatate 100 MG Cap PO PRN ×2 (09:53→20:47)
[2018-09-25] MEDS: cefTRIAXone 2 GM in Sodium Chloride 0.9% 50 ML IV SCH (17:56)
[2018-09-25] MEDS: Enoxaparin 40 MG/0.4 ML Syringe SUBCUT SCH (17:57)
[2018-09-25] MEDS ORDERED: Metoprolol Tartrate 25 MG Tab PO SCH (22:00)
[2018-09-26] MEDS: guaiFENesin/Dextromethorphan 100-10 MG/5 ML Soln 10 ML Cup PO PRN (00:58)
[2018-09-26] MEDS: LORazepam 0.5 MG Tab PO PRN ×3 (00:58→16:10)
[2018-09-26] MEDS: Sodium Chloride 0.9% 1,000 ML IV SCH (06:29)
[2018-09-26] MEDS: Albuterol/Ipratropium 3.0-0.5 MG/3 ML Neb Soln NEB SCH ×4 (07:09→20:39)
[2018-09-26] MEDS: Metoprolol Tartrate 25 MG Tab PO SCH ×2 (08:13→20:38)
[2018-09-26] MEDS: predniSONE 20 MG Tab PO SCH ×2 (08:14→16:11)
[2018-09-26] MEDS: Azithromycin 250 MG Tab PO SCH (08:15)
[2018-09-26] MEDS: Ibuprofen 600 MG Tab PO PRN ×2 (09:31→16:09)
[2018-09-26] MEDS: Albuterol 0.083% 2.5 MG/3 ML Neb Soln NEB PRN (09:32)
--- NOTE | 2018-09-26 09:58 | PCM.PN ---
- General Info Date of Service: 09/26/18 Subjective Update: Mr. Mccormick was admitted through the emergency department with hypoxic respiratory failure bronchitis and COPD exacerbation. Over the last 24 hours is shown further modest improvement with less shortness of breath and cough. Continues to require higher level of supplemental oxygen. Atrial fibrillation rate has been well controlled with current management. Functional Status: Reports: Tolerating Diet, Urinating - Review of Systems General: Reports: Weakness. Denies: Fever, Chills Pulmonary: Reports: Shortness of Breath, Cough, Wheezing. Denies: Pleuritic Chest Pain, Sputum, Hemoptysis Cardiovascular: Reports: Dyspnea on Exertion. Denies: Chest Pain, Palpitations , Orthopnea, PND, Edema Gastrointestinal: Reports: No Symptoms - Patient Data Vitals - Most Recent: Last Vital Signs Temp 97.5 F 09/26/18 08:00 Pulse 88 09/26/18 08:13 Resp 24 H 09/26/18 08:00 BP 121/67 09/26/18 08:13 Pulse Ox 98 09/26/18 08:00 Weight - Most Recent: 195 lb 0.017 oz I&O - Last 24 Hours: Intake & Output 09/25/18 09/26/18 09/26/18 22:59 06:59 14:59 Intake Total 1194 1118 Output Total 825 1050 Balance 369 68 Lab Results Last 24 Hours: Laboratory Results - last 24 hr 09/26/18 09/26/18 Range/Units 05:48 05:48 WBC 8.4 (4.5-11.0) K/uL RBC 3.86 L (4.30-5.90) M/uL Hgb 10.4 L (12.0-15.0) g/dL Hct 34.7 L (40.0-54.0) % MCV 90 (80-98) fL MCH 27 (27-31) pg MCHC 30 L (32-36) % Plt Count 420 H (150-400) K/uL Sodium 138 L (140-148) mmol/L Potassium 4.2 (3.6-5.2) mmol/L Chloride 105 (100-108) mmol/L Carbon Dioxide 23 (21-32) mmol/L Anion Gap 14.2 H (5.0-14.0) mmol/L BUN 14 (7-18) mg/dL Creatinine 1.1 (0.8-1.3) mg/dL Est Cr Clr Drug Dosing 69.57 mL/min Estimated GFR (MDRD) > 60 (>60) Glucose 135 H (74-106) mg/dL Calcium 8.9 (8.5-10.1) mg/dL Troponin I 0.132 H* (0.000-0.056) ng/mL Med Orders - Current: Current Medications Acetaminophen (Tylenol) 650 mg PO Q4H PRN PRN Reason: Pain (Mild 1-3)/fever Last Admin: 09/24/18 19:44 Dose: 650 mg Albuterol (Proventil Neb Soln) 2.5 mg NEB Q4H PRN PRN Reason: Shortness Of Breath/wheezing Last Admin: 09/26/18 09:32 Dose: 2.5 mg Albuterol/Ipratropium (Duoneb 3.0-0.5 Mg/3 Ml) 3 ml NEB QIDRT [facility] Last Admin: 09/26/18 07:09 Dose: 3 ml Azithromycin (Zithromax) 500 mg PO DAILY [facility] Last Admin: 09/26/18 08:15 Dose: 500 mg Benzonatate (Tessalon Perles) 100 mg PO TID PRN PRN Reason: Cough Last Admin: 09/25/18 20:47 Dose: 100 mg Enoxaparin Sodium (Lovenox) 40 mg SUBCUT Q24H [facility] Last Admin: 09/25/18 17:57 Dose: 40 mg Guaifenesin/Dextromethorphan (Robitussin Dm) 10 ml PO Q4H PRN PRN Reason: Cough Last Admin: 09/26/18 00:58 Dose: 10 ml Ceftriaxone Sodium 2 gm/ (Sodium Chloride) 50 mls @ 100 mls/hr IV Q24H [facility] Last Admin: 09/25/18 17:56 Dose: 100 mls/hr Ibuprofen (Motrin) 600 mg PO Q6H PRN PRN Reason: Pain/Fever Last Admin: 09/26/18 09:31 Dose: 600 mg Lorazepam (Ativan) 0.5 mg PO Q4H PRN PRN Reason: Anxiety Last Admin: 09/26/18 00:58 Dose: 0.5 mg Metoprolol Tartrate (Lopressor) 12.5 mg PO BID [facility] Last Admin: 09/26/18 08:13 Dose: 12.5 mg Morphine Sulfate (Morphine) 4 mg IVPUSH Q4H PRN PRN Reason: air hunger Last Admin: 09/25/18 22:38 Dose: 4 mg Ondansetron HCl (Zofran Odt) 4 mg PO Q6H PRN PRN Reason: Nausea able to take PO Prednisone (Prednisone) 20 mg PO BIDAC [facility] Last Admin: 09/26/18 08:14 Dose: 20 mg Senna/Docusate Sodium (Senna Plus) 1 tab PO BID PRN PRN Reason: Constipation Discontinued Medications Albuterol/Ipratropium (Duoneb 3.0-0.5 Mg/3 Ml) 3 ml NEB ONETIME ONE Stop: 09/24/18 15:32 Last Admin: 09/24/18 15:39 Dose: 3 ml Diltiazem HCl (Diltiazem) 25 mg IVPUSH ONETIME ONE Stop: 09/24/18 15:03 Last Admin: 09/24/18 15:12 Dose: 25 mg Diltiazem HCl (Diltiazem) 5 mg IVPUSH ONETIME ONE Stop: 09/24/18 19:40 Last Admin: 09/24/18 19:56 Dose: 5 mg Enoxaparin Sodium (Lovenox) 40 mg SUBCUT DAILY [facility] Last Admin: 09/24/18 17:49 Dose: 40 mg Sodium Chloride (Normal Saline) 1,000 mls @ 250 mls/hr IV ASDIRECTED [facility] Last Admin: 09/24/18 15:12 Dose: 250 mls/hr Diltiazem HCl 100 mg/ Sodium (Chloride) 100 mls @ 5 mls/hr IV TITRATE [facility]; Protocol Last Titration: 09/25/18 06:16 Dose: 0 mg/hr, 0 mls/hr Sodium Chloride (Normal Saline) 1,000 mls @ 100 mls/hr IV ASDIRECTED [facility] Last Admin: 09/26/18 06:29 Dose: 100 mls/hr Metoprolol Tartrate (Lopressor) 12.5 mg PO Q12H [facility] Last Admin: 09/25/18 22:37 Dose: 12.5 mg Prednisone (Prednisone) 40 mg PO ONETIME ONE Stop: 09/24/18 16:45 Last Admin: 09/24/18 17:47 Dose: 40 mg - Exam Quality Assessment: Supplemental Oxygen, DVT Prophylaxis General: Alert, Oriented, Cooperative, Moderate Distress Lungs: Decreased Breath Sounds, Rhonchi, Wheezing Cardiovascular: Regular Rate, No Murmurs, Irregular Rhythm GI/Abdominal Exam: Soft, Non-Tender, No Organomegaly, No Distention Extremities: Non-Tender, No Pedal Edema - Problem List Review Problem List Initiated/Reviewed/Updated: Yes - My Orders Last 24 Hours: My Active Orders 09/26/18 09:49 Convert IV to Saline Lock [OM.PC] Routine 09/27/18 05:00 BASIC METABOLIC PANEL,BMP [CHEM] Timed CBC WITH AUTO DIFF [HEME] Timed TROPONIN I [CHEM] Timed - Plan Plan:: ASSESSMENT AND PLAN - Acute bronchitis - complicated by acute exacerbation of COPD. further modest improvement over the last 24 hours, denies shortness of breath at rest but does become very short of breath with minimal exertion. -Antibiotic coverage with azithromycin and ceftriaxone -Prednisone 20 mg twice daily with meals -Scheduled and as needed nebulizers -Follow-up sputum culture -Supplement oxygen as needed -Symptomatic management of cough Atrial fibrillation with rapid ventricular response - No history of atrial fibrillation. CHADSS-VASC is 0. Now in sinus rhythm and off diltiazem. Echocardiogram shows decreased left ventricular function with estimated ejection fraction of 35-40%, left atrial enlargement, and mild mitral regurgitation. Formal report is pending. Intermittently in atrial fibrillation over the past 24 hours, rate control improved. -Cardiac monitoring -Continue Lopressor 12.5 mg by mouth twice a day Maintenance issues - - DVT prophylaxis - enoxaparin - GI prophylaxis - not indicated - Nutrition - regular diet Disposition - I would anticipate discharge home after the hospital stay Primary care physician - [facility] in [place]
[2018-09-26] MEDS: Benzonatate 100 MG Cap PO PRN (11:33)
[2018-09-26] MEDS: Enoxaparin 40 MG/0.4 ML Syringe SUBCUT SCH (17:38)
[2018-09-26] MEDS: cefTRIAXone 2 GM in Sodium Chloride 0.9% 50 ML IV SCH (17:38)
[2018-09-27] MEDS: Albuterol 0.083% 2.5 MG/3 ML Neb Soln NEB PRN ×2 (00:27→21:13)
[2018-09-27] MEDS: Albuterol/Ipratropium 3.0-0.5 MG/3 ML Neb Soln NEB SCH ×4 (07:02→21:01)
[2018-09-27] MEDS: Ibuprofen 600 MG Tab PO PRN (07:51)
[2018-09-27] MEDS: Benzonatate 100 MG Cap PO PRN (07:51)
[2018-09-27] MEDS: guaiFENesin/Dextromethorphan 100-10 MG/5 ML Soln 10 ML Cup PO PRN (07:52)
[2018-09-27] MEDS: predniSONE 20 MG Tab PO SCH ×2 (07:52→16:20)
[2018-09-27] MEDS: Metoprolol Tartrate 25 MG Tab PO SCH ×2 (09:15→21:04)
[2018-09-27] MEDS: Azithromycin 250 MG Tab PO SCH (09:16)
--- NOTE | 2018-09-27 10:22 | PCM.PN ---
- General Info Date of Service: 09/27/18 Subjective Update: Mr. Mccormick has noted further modest improvement in shortness of breath and cough over the last 24 hours, he is not yet back to baseline or even very close. Cough for the most part has remained nonproductive. Functional Status: Reports: Tolerating Diet, Urinating - Review of Systems General: Reports: Weakness. Denies: Fever, Chills Pulmonary: Reports: Shortness of Breath, Cough, Wheezing. Denies: Pleuritic Chest Pain, Sputum, Hemoptysis Cardiovascular: Reports: Dyspnea on Exertion. Denies: Chest Pain, Palpitations , Orthopnea, PND, Edema Gastrointestinal: Reports: No Symptoms - Patient Data Vitals - Most Recent: Last Vital Signs Temp 96.5 F 09/26/18 22:00 Pulse 101 H 09/27/18 09:15 Resp 21 H 09/27/18 08:00 BP 119/83 09/27/18 09:15 Pulse Ox 94 L 09/27/18 08:00 Weight - Most Recent: 195 lb 0.017 oz I&O - Last 24 Hours: Intake & Output 09/26/18 09/27/18 09/27/18 22:59 06:59 14:59 Intake Total 480 120 Output Total 1350 450 400 Balance -870 -330 -400 Lab Results Last 24 Hours: Laboratory Results - last 24 hr 09/27/18 09/27/18 Range/Units 05:57 05:57 WBC 10.1 (4.5-11.0) K/uL RBC 3.87 L (4.30-5.90) M/uL Hgb 10.6 L (12.0-15.0) g/dL Hct 34.6 L (40.0-54.0) % MCV 89 (80-98) fL MCH 27 (27-31) pg MCHC 31 L (32-36) % Plt Count 484 H (150-400) K/uL Neut % (Auto) 79 H (36-66) % Lymph % (Auto) 12 L (24-44) % [place] % (Auto) 9 H (2-6) % Eos % (Auto) 0 L (2-4) % Baso % (Auto) 0 (0-1) % Sodium 138 L (140-148) mmol/L Potassium 4.7 (3.6-5.2) mmol/L Chloride 105 (100-108) mmol/L Carbon Dioxide 24 (21-32) mmol/L Anion Gap 13.7 (5.0-14.0) mmol/L BUN 17 (7-18) mg/dL Creatinine 1.2 (0.8-1.3) mg/dL Est Cr Clr Drug Dosing 63.86 mL/min Estimated GFR (MDRD) > 60 (>60) Glucose 130 H (74-106) mg/dL Calcium 8.9 (8.5-10.1) mg/dL Troponin I 0.142 H* (0.000-0.056) ng/mL Jose Results Last 24 Hours: Microbiology 09/24/18 17:10 Gram Stain - Final Sputum - Expectorated Respiratory Culture - Final NORMAL RESPIRATORY DANIELA 2 DAYS Med Orders - Current: Current Medications Acetaminophen (Tylenol) 650 mg PO Q4H PRN PRN Reason: Pain (Mild 1-3)/fever Last Admin: 09/24/18 19:44 Dose: 650 mg Albuterol (Proventil Neb Soln) 2.5 mg NEB Q4H PRN PRN Reason: Shortness Of Breath/wheezing Last Admin: 09/27/18 00:27 Dose: 2.5 mg Albuterol/Ipratropium (Duoneb 3.0-0.5 Mg/3 Ml) 3 ml NEB QIDRT [facility] Last Admin: 09/27/18 07:02 Dose: 3 ml Benzonatate (Tessalon Perles) 100 mg PO TID PRN PRN Reason: Cough Last Admin: 09/27/18 07:51 Dose: 100 mg Enoxaparin Sodium (Lovenox) 40 mg SUBCUT Q24H [facility] Last Admin: 09/26/18 17:38 Dose: 40 mg Guaifenesin/Dextromethorphan (Robitussin Dm) 10 ml PO Q4H PRN PRN Reason: Cough Last Admin: 09/27/18 07:52 Dose: 10 ml Ceftriaxone Sodium 2 gm/ (Sodium Chloride) 50 mls @ 100 mls/hr IV Q24H [facility] Last Admin: 09/26/18 17:38 Dose: 100 mls/hr Ibuprofen (Motrin) 600 mg PO Q6H PRN PRN Reason: Pain/Fever Last Admin: 03/19/19 07:51 Dose: 600 mg Lorazepam (Ativan) 0.5 mg PO Q4H PRN PRN Reason: Anxiety Last Admin: 09/26/18 16:10 Dose: 0.5 mg Metoprolol Tartrate (Lopressor) 12.5 mg PO BID [facility] Last Admin: 09/27/18 09:15 Dose: 12.5 mg Morphine Sulfate (Morphine) 4 mg IVPUSH Q4H PRN PRN Reason: air hunger Last Admin: 09/25/18 22:38 Dose: 4 mg Ondansetron HCl (Zofran Odt) 4 mg PO Q6H PRN PRN Reason: Nausea able to take PO Prednisone (Prednisone) 20 mg PO BIDAC [facility] Last Admin: 09/27/18 07:52 Dose: 20 mg Senna/Docusate Sodium (Senna Plus) 1 tab PO BID PRN PRN Reason: Constipation Discontinued Medications Albuterol/Ipratropium (Duoneb 3.0-0.5 Mg/3 Ml) 3 ml NEB ONETIME ONE Stop: 09/24/18 15:32 Last Admin: 09/24/18 15:39 Dose: 3 ml Azithromycin (Zithromax) 500 mg PO DAILY [facility] Last Admin: 09/27/18 09:16 Dose: 500 mg Diltiazem HCl (Diltiazem) 25 mg IVPUSH ONETIME ONE Stop: 09/24/18 15:03 Last Admin: 09/24/18 15:12 Dose: 25 mg Diltiazem HCl (Diltiazem) 5 mg IVPUSH ONETIME ONE Stop: 09/24/18 19:40 Last Admin: 09/24/18 19:56 Dose: 5 mg Enoxaparin Sodium (Lovenox) 40 mg SUBCUT DAILY [facility] Last Admin: 09/24/18 17:49 Dose: 40 mg Sodium Chloride (Normal Saline) 1,000 mls @ 250 mls/hr IV ASDIRECTED [facility] Last Admin: 09/24/18 15:12 Dose: 250 mls/hr Diltiazem HCl 100 mg/ Sodium (Chloride) 100 mls @ 5 mls/hr IV TITRATE [facility]; Protocol Last Titration: 09/25/18 06:16 Dose: 0 mg/hr, 0 mls/hr Sodium Chloride (Normal Saline) 1,000 mls @ 100 mls/hr IV ASDIRECTED [facility] Last Admin: 09/26/18 06:29 Dose: 100 mls/hr Metoprolol Tartrate (Lopressor) 12.5 mg PO Q12H [facility] Last Admin: 09/25/18 22:37 Dose: 12.5 mg Prednisone (Prednisone) 40 mg PO ONETIME ONE Stop: 09/24/18 16:45 Last Admin: 09/24/18 17:47 Dose: 40 mg - Exam Quality Assessment: Supplemental Oxygen, DVT Prophylaxis General: Alert, Oriented, Cooperative, Moderate Distress Lungs: Decreased Breath Sounds, Rhonchi, Wheezing. No: Rales, Rub Cardiovascular: Regular Rate, Regular Rhythm, No Murmurs GI/Abdominal Exam: Soft, Non-Tender, No Organomegaly, No Distention - Problem List Review Problem List Initiated/Reviewed/Updated: Yes - My Orders Last 24 Hours: My Active Orders 09/26/18 09:49 Convert IV to Saline Lock [OM.PC] Routine 09/27/18 10:02 Patient Status [ADT] Routine 09/28/18 05:00 BASIC METABOLIC PANEL,BMP [CHEM] Timed TROPONIN I [CHEM] Timed - Plan Plan:: ASSESSMENT AND PLAN - Acute bronchitis - complicated by acute exacerbation of COPD. Further modest improvement over the last 24 hours, denies shortness of breath at rest but does become very short of breath with minimal exertion. -Discontinue azithromycin, he has completed a full course -Antibiotic coverage with ceftriaxone -Prednisone 20 mg twice daily with meals -Scheduled and as needed nebulizers -Follow-up sputum culture -Supplement oxygen as needed -Symptomatic management of cough Atrial fibrillation with rapid ventricular response -remains in sinus rhythm -Cardiac monitoring -Continue Lopressor 12.5 mg by mouth twice a day Maintenance issues - - DVT prophylaxis - enoxaparin - GI prophylaxis - not indicated - Nutrition - regular diet Disposition - I would anticipate discharge home after the hospital stay Primary care physician - [facility] in [place]
[2018-09-27] MEDS: Enoxaparin 40 MG/0.4 ML Syringe SUBCUT SCH (18:29)
[2018-09-27] MEDS: cefTRIAXone 2 GM in Sodium Chloride 0.9% 50 ML IV SCH (18:29)
[2018-09-28] MEDS: Albuterol/Ipratropium 3.0-0.5 MG/3 ML Neb Soln NEB SCH ×4 (07:23→20:49)
[2018-09-28] MEDS: Metoprolol Tartrate 25 MG Tab PO SCH ×2 (08:01→20:41)
[2018-09-28] MEDS: predniSONE 20 MG Tab PO SCH ×2 (08:01→16:20)
--- NOTE | 2018-09-28 11:56 | PCM.PN ---
- General Info Date of Service: 09/28/18 Subjective Update: Mr. Mccormick is experienced further improvement since yesterday with less shortness of breath and cough. He continues to experience shortness of breath with fairly minimal activity. Oxygenation at rest on room air is within desired range. Functional Status: Reports: Tolerating Diet, Urinating - Review of Systems General: Reports: Weakness. Denies: Fever, Chills Pulmonary: Reports: Shortness of Breath, Cough, Wheezing. Denies: Pleuritic Chest Pain, Sputum, Hemoptysis Cardiovascular: Reports: Dyspnea on Exertion. Denies: Chest Pain, Palpitations , Orthopnea, PND, Edema, Lightheadedness Gastrointestinal: Reports: No Symptoms - Patient Data Vitals - Most Recent: Last Vital Signs Temp 97.7 F 09/28/18 10:57 Pulse 90 09/28/18 11:02 Resp 18 09/28/18 10:57 BP 132/76 09/28/18 10:57 Pulse Ox 97 09/28/18 10:57 Weight - Most Recent: 195 lb 0.017 oz I&O - Last 24 Hours: Intake & Output 09/27/18 09/28/18 09/28/18 22:59 06:59 14:59 Intake Total 715 825 Output Total 1000 1750 Balance -285 -925 Lab Results Last 24 Hours: Laboratory Results - last 24 hr 09/28/18 Range/Units 05:06 Sodium 142 (140-148) mmol/L Potassium 4.2 (3.6-5.2) mmol/L Chloride 106 (100-108) mmol/L Carbon Dioxide 25 (21-32) mmol/L Anion Gap 10.9 (5.0-14.0) mmol/L BUN 22 H (7-18) mg/dL Creatinine 1.2 (0.8-1.3) mg/dL Est Cr Clr Drug Dosing 63.86 mL/min Estimated GFR (MDRD) > 60 (>60) Glucose 153 H (74-106) mg/dL Calcium 8.9 (8.5-10.1) mg/dL Troponin I 0.121 H* (0.000-0.056) ng/mL Jose Results Last 24 Hours: Microbiology 09/24/18 17:10 Gram Stain - Final Sputum - Expectorated Respiratory Culture - Final NORMAL RESPIRATORY DANIELA 2 DAYS Med Orders - Current: Current Medications Acetaminophen (Tylenol) 650 mg PO Q4H PRN PRN Reason: Pain (Mild 1-3)/fever Last Admin: 09/24/18 19:44 Dose: 650 mg Albuterol (Proventil Neb Soln) 2.5 mg NEB Q4H PRN PRN Reason: Shortness Of Breath/wheezing Last Admin: 09/27/18 21:13 Dose: 2.5 mg Albuterol/Ipratropium (Duoneb 3.0-0.5 Mg/3 Ml) 3 ml NEB QIDRT [facility] Last Admin: 09/28/18 10:52 Dose: 3 ml Benzonatate (Tessalon Perles) 100 mg PO TID PRN PRN Reason: Cough Last Admin: 09/27/18 07:51 Dose: 100 mg Enoxaparin Sodium (Lovenox) 40 mg SUBCUT Q24H [facility] Last Admin: 09/27/18 18:29 Dose: 40 mg Guaifenesin/Dextromethorphan (Robitussin Dm) 10 ml PO Q4H PRN PRN Reason: Cough Last Admin: 09/27/18 07:52 Dose: 10 ml Ceftriaxone Sodium 2 gm/ (Sodium Chloride) 50 mls @ 100 mls/hr IV Q24H [facility] Last Admin: 09/27/18 18:29 Dose: 100 mls/hr Ibuprofen (Motrin) 600 mg PO Q6H PRN PRN Reason: Pain/Fever Last Admin: 09/27/18 07:51 Dose: 600 mg Lorazepam (Ativan) 0.5 mg PO Q4H PRN PRN Reason: Anxiety Last Admin: 09/26/18 16:10 Dose: 0.5 mg Metoprolol Tartrate (Lopressor) 12.5 mg PO BID [facility] Last Admin: 09/28/18 08:01 Dose: 12.5 mg Morphine Sulfate (Morphine) 4 mg IVPUSH Q4H PRN PRN Reason: air hunger Last Admin: 09/25/18 22:38 Dose: 4 mg Ondansetron HCl (Zofran Odt) 4 mg PO Q6H PRN PRN Reason: Nausea able to take PO Pneumococcal Polyvalent Vaccine (Pneumovax 23) 0.5 ml IM .ONCE ONE Stop: 09/28/18 14:01 [facility] Last Admin: 09/28/18 08:01 Dose: 20 mg Senna/Docusate Sodium (Senna Plus) 1 tab PO BID PRN PRN Reason: Constipation Discontinued Medications Albuterol/Ipratropium (Duoneb 3.0-0.5 Mg/3 Ml) 3 ml NEB ONETIME ONE Stop: 09/24/18 15:32 Last Admin: 09/24/18 15:39 Dose: 3 ml Azithromycin (Zithromax) 500 mg PO DAILY [facility] Last Admin: 09/27/18 09:16 Dose: 500 mg Diltiazem HCl (Diltiazem) 25 mg IVPUSH ONETIME ONE Stop: 09/24/18 15:03 Last Admin: 09/24/18 15:12 Dose: 25 mg Diltiazem HCl (Diltiazem) 5 mg IVPUSH ONETIME ONE Stop: 09/24/18 19:40 Last Admin: 09/24/18 19:56 Dose: 5 mg Enoxaparin Sodium (Lovenox) 40 mg SUBCUT DAILY [facility] Last Admin: 09/24/18 17:49 Dose: 40 mg Sodium Chloride (Normal Saline) 1,000 mls @ 250 mls/hr IV ASDIRECTED [facility] Last Admin: 09/24/18 15:12 Dose: 250 mls/hr Diltiazem HCl 100 mg/ Sodium (Chloride) 100 mls @ 5 mls/hr IV TITRATE [facility]; Protocol Last Titration: 09/25/18 06:16 Dose: 0 mg/hr, 0 mls/hr Sodium Chloride (Normal Saline) 1,000 mls @ 100 mls/hr IV ASDIRECTED [facility] Last Admin: 09/26/18 06:29 Dose: 100 mls/hr Metoprolol Tartrate (Lopressor) 12.5 mg PO Q12H [facility] Last Admin: 09/25/18 22:37 Dose: 12.5 mg Prednisone (Prednisone) 40 mg PO ONETIME ONE Stop: 09/24/18 16:45 Last Admin: 09/24/18 17:47 Dose: 40 mg - Exam Quality Assessment: DVT Prophylaxis General: Alert, Oriented, Cooperative, Mild Distress Lungs: Decreased Breath Sounds, Wheezing. No: Rales, Rhonchi, Rub Cardiovascular: Regular Rate, Regular Rhythm, No Murmurs GI/Abdominal Exam: Soft, Non-Tender, No Organomegaly, No Distention Extremities: Non-Tender, No Pedal Edema - Problem List Review Problem List Initiated/Reviewed/Updated: Yes - My Orders Last 24 Hours: My Active Orders 09/28/18 11:53 Discontinue Telemetry Monitoring [Cardiac Monitoring Discontinue] [RC] Click to Edit 09/28/18 14:00 Pneumococcal Polyvalent-23 Vac [Pneumovax 23] 0.5 ml IM .ONCE ONE - Plan Plan:: ASSESSMENT AND PLAN - Acute bronchitis - complicated by acute exacerbation of COPD. intermittently improved from admission, continues to experience significant shortness of breath with fairly minimal activity area -Antibiotic coverage with ceftriaxone, plan to discontinue tomorrow -Prednisone 20 mg twice daily with meals -Scheduled and as needed nebulizers -Follow-up sputum culture -Supplement oxygen as needed -Symptomatic management of cough Atrial fibrillation with rapid ventricular response -remains in sinus rhythm -Cardiac monitoring -Continue Lopressor 12.5 mg by mouth twice a day Maintenance issues - - DVT prophylaxis - enoxaparin - GI prophylaxis - not indicated - Nutrition - regular diet Disposition - I would anticipate discharge home after the hospital stay Primary care physician - BENJAMIN in [place]
[2018-09-28] MEDS ORDERED: Pneumococcal Polyvalent-23 Vaccine 0.5 ML SDV IM ONE (14:00)
[2018-09-28] MEDS: Enoxaparin 40 MG/0.4 ML Syringe SUBCUT SCH (17:57)
[2018-09-28] MEDS: cefTRIAXone 2 GM in Sodium Chloride 0.9% 50 ML IV SCH (17:57)
[2018-09-29] MEDS: Benzonatate 100 MG Cap PO PRN ×2 (02:47→21:07)
[2018-09-29] MEDS: guaiFENesin/Dextromethorphan 100-10 MG/5 ML Soln 10 ML Cup PO PRN ×2 (02:48→21:08)
[2018-09-29] MEDS: Ibuprofen 600 MG Tab PO PRN (02:52)
[2018-09-29] MEDS: Albuterol 0.083% 2.5 MG/3 ML Neb Soln NEB PRN ×2 (04:29→23:46)
[2018-09-29] MEDS: Albuterol/Ipratropium 3.0-0.5 MG/3 ML Neb Soln NEB SCH ×4 (07:12→20:45)
[2018-09-29] MEDS: predniSONE 20 MG Tab PO SCH (07:41)
[2018-09-29] MEDS: Metoprolol Tartrate 25 MG Tab PO SCH ×2 (09:20→20:45)
--- NOTE | 2018-09-29 10:57 | PCM.PN ---
- General Info Date of Service: 09/29/18 Subjective Update: Mr. Mccormick has had adequate oxygenation on room air with activity and at rest. He's not felt as well over last 24 hours with some gastrointestinal upset. He had not had a bowel movement for sometime and did receive laxatives. He did have a bowel movement last night but since then has experienced diarrhea with some intermittent cramping abdominal pain. He remains fairly weak and would like to consider transitional detention placement to regain some strength prior to going home. Functional Status: Reports: Tolerating Diet, Ambulating, Urinating - Review of Systems General: Reports: Weakness. Denies: Fever, Chills Pulmonary: Reports: Shortness of Breath, Cough, Wheezing. Denies: Pleuritic Chest Pain, Sputum, Hemoptysis Cardiovascular: Reports: Dyspnea on Exertion. Denies: Chest Pain, Palpitations , Orthopnea, PND, Edema, Lightheadedness Gastrointestinal: Reports: Abdominal Pain, Diarrhea. Denies: Constipation, Difficulty Swallowing, Nausea, Vomiting - Patient Data Vitals - Most Recent: Last Vital Signs Temp 98.1 F 09/29/18 07:54 Pulse 86 09/29/18 09:20 Resp 20 09/29/18 07:54 BP 128/81 09/29/18 09:20 Pulse Ox 67 L 09/29/18 07:54 Weight - Most Recent: 195 lb 0.017 oz I&O - Last 24 Hours: Intake & Output 09/28/18 09/29/18 09/29/18 22:59 06:59 14:59 Intake Total 2500 400 Balance 2500 400 Med Orders - Current: Current Medications Acetaminophen (Tylenol) 650 mg PO Q4H PRN PRN Reason: Pain (Mild 1-3)/fever Last Admin: 09/24/18 19:44 Dose: 650 mg Albuterol (Proventil Neb Soln) 2.5 mg NEB Q4H PRN PRN Reason: Shortness Of Breath/wheezing Last Admin: 09/29/18 04:29 Dose: 2.5 mg Albuterol/Ipratropium (Duoneb 3.0-0.5 Mg/3 Ml) 3 ml NEB QIDRT [facility] Last Admin: 09/29/18 07:12 Dose: 3 ml Benzonatate (Tessalon Perles) 100 mg PO TID PRN PRN Reason: Cough Last Admin: 09/29/18 02:47 Dose: 100 mg Enoxaparin Sodium (Lovenox) 40 mg SUBCUT Q24H [facility] Last Admin: 09/28/18 17:57 Dose: 40 mg Guaifenesin/Dextromethorphan (Robitussin Dm) 10 ml PO Q4H PRN PRN Reason: Cough Last Admin: 09/29/18 02:48 Dose: 10 ml Ceftriaxone Sodium 2 gm/ (Sodium Chloride) 50 mls @ 100 mls/hr IV Q24H [facility] Last Admin: 09/28/18 17:57 Dose: 100 mls/hr Ibuprofen (Motrin) 600 mg PO Q6H PRN PRN Reason: Pain/Fever Last Admin: 09/29/18 02:52 Dose: 600 mg Lorazepam (Ativan) 0.5 mg PO Q4H PRN PRN Reason: Anxiety Last Admin: 09/26/18 16:10 Dose: 0.5 mg Metoprolol Tartrate (Lopressor) 12.5 mg PO BID [facility] Last Admin: 09/29/18 09:20 Dose: 12.5 mg Morphine Sulfate (Morphine) 4 mg IVPUSH Q4H PRN PRN Reason: air hunger Last Admin: 09/25/18 22:38 Dose: 4 mg Ondansetron HCl (Zofran Odt) 4 mg PO Q6H PRN PRN Reason: Nausea able to take PO [facility]) [facility] Last Admin: 09/29/18 07:41 Dose: 20 mg Senna/Docusate Sodium (Senna Plus) 1 tab PO BID PRN PRN Reason: Constipation Discontinued Medications Albuterol/Ipratropium (Duoneb 3.0-0.5 Mg/3 Ml) 3 ml NEB ONETIME ONE Stop: 09/24/18 15:32 Last Admin: 09/24/18 15:39 Dose: 3 ml Azithromycin (Zithromax) 500 mg PO DAILY [facility] Last Admin: 09/27/18 09:16 Dose: 500 mg Diltiazem HCl (Diltiazem) 25 mg IVPUSH ONETIME ONE Stop: 09/24/18 15:03 Last Admin: 09/24/18 15:12 Dose: 25 mg Diltiazem HCl (Diltiazem) 5 mg IVPUSH ONETIME ONE Stop: 09/24/18 19:40 Last Admin: 09/24/18 19:56 Dose: 5 mg Enoxaparin Sodium (Lovenox) 40 mg SUBCUT DAILY [facility] Last Admin: 09/24/18 17:49 Dose: 40 mg Sodium Chloride (Normal Saline) 1,000 mls @ 250 mls/hr IV ASDIRECTED [facility] Last Admin: 09/24/18 15:12 Dose: 250 mls/hr Diltiazem HCl 100 mg/ Sodium (Chloride) 100 mls @ 5 mls/hr IV TITRATE [facility]; Protocol Last Titration: 09/25/18 06:16 Dose: 0 mg/hr, 0 mls/hr Sodium Chloride (Normal Saline) 1,000 mls @ 100 mls/hr IV ASDIRECTED [facility] Last Admin: 09/26/18 06:29 Dose: 100 mls/hr Metoprolol Tartrate (Lopressor) 12.5 mg PO Q12H [facility] Last Admin: 09/25/18 22:37 Dose: 12.5 mg Pneumococcal Polyvalent Vaccine (Pneumovax 23) 0.5 ml IM .ONCE ONE Stop: 09/28/18 14:01 Last Admin: 09/28/18 16:26 Dose: 0.5 ml Prednisone (Prednisone) 40 mg PO ONETIME ONE Stop: 09/24/18 16:45 Last Admin: 09/24/18 17:47 Dose: 40 mg - Exam Quality Assessment: Supplemental Oxygen, DVT Prophylaxis General: Alert, Oriented, Mild Distress Lungs: Normal Respiratory Effort, Decreased Breath Sounds, Wheezing. No: Rales , Rhonchi, Rub Cardiovascular: Regular Rate, Regular Rhythm, No Murmurs GI/Abdominal Exam: Soft, Non-Tender, No Organomegaly, No Distention Extremities: Non-Tender, No Pedal Edema - Problem List Review Problem List Initiated/Reviewed/Updated: Yes - Plan Plan:: ASSESSMENT AND PLAN - Acute bronchitis - complicated by acute exacerbation of COPD. oxygenation adequate on room air, subjectively continues to experience shortness of breath with fairly minimal exertion. -Discontinue ceftriaxone -Prednisone 20 mg daily with meals -Scheduled and as needed nebulizers -Supplement oxygen as needed -Symptomatic management of cough Atrial fibrillation with rapid ventricular response -remains in sinus rhythm -Cardiac monitoring -Continue Lopressor 12.5 mg by mouth twice a day Maintenance issues - - DVT prophylaxis - enoxaparin - GI prophylaxis - not indicated - Nutrition - regular diet Disposition - I would anticipate discharge home after the hospital stay Primary care physician - BENJAMIN in [place]
[2018-09-29] MEDS: Enoxaparin 40 MG/0.4 ML Syringe SUBCUT SCH (17:02)
[2018-09-29] MEDS: LORazepam 0.5 MG Tab PO PRN (23:51)
[2018-09-30] MEDS: Albuterol 0.083% 2.5 MG/3 ML Neb Soln NEB PRN (05:08)
[2018-09-30] MEDS: Albuterol/Ipratropium 3.0-0.5 MG/3 ML Neb Soln NEB SCH ×2 (07:23→10:45)
[2018-09-30] MEDS: Metoprolol Tartrate 25 MG Tab PO SCH (08:36)
[2018-09-30] MEDS ORDERED: predniSONE 20 MG Tab PO SCH (09:00)
[2018-09-30] MEDS ORDERED: Calcium Carbonate 500 MG Tab.Chew PO PRN (09:34)
[2018-09-30 11:36] VITALS: BP 123/79
--- NOTE | 2018-09-30 12:03 | PCM.DCSUM1 ---
Discharge Summary - Hospital Course Brief History: Mr. Mccormick is a 67-year-old gentleman who was admitted through the emergency department with shortness of breath and hypoxia secondary to COPD exacerbation and underlying bronchitis. - Discharge Data Discharge Date: 09/30/18 Discharge Disposition: Home, W Home Health Agency 06 Condition: Fair - Discharge Diagnosis/Problem(s) (1) Hypoxia SNOMED Code(s): 699920917 ICD Code: R09.02 - HYPOXEMIA Status: Acute Current Visit: Yes (2) Atrial fibrillation with RVR SNOMED Code(s): 914367206189058 ICD Code: I48.91 - UNSPECIFIED ATRIAL FIBRILLATION Status: Acute Current Visit: Yes (3) COPD exacerbation SNOMED Code(s): 496906134 ICD Code: J44.1 - CHRONIC OBSTRUCTIVE PULMONARY DISEASE W (ACUTE) EXACERBATION Status: Acute Current Visit: Yes (4) Acute bronchitis SNOMED Code(s): 14480604 ICD Code: J20.9 - ACUTE BRONCHITIS, UNSPECIFIED Status: Acute Current Visit: Yes Qualifiers: Bronchitis organism: unspecified organism Qualified Code(s): J20.9 - Acute bronchitis, unspecified - Patient Summary/Data Hospital Course: Mr. Mccormick presented to the emergency room with 4-5 days of worsening shortness of breath. He reports that he has been short of breath for a long time but much more short of breath last few days. He has a productive cough with moderate sputum production, especially when he lays down. He is now short of breath with minimal activity and takes several minutes to recover after walking 10 feet or less. He has mild to moderate pleuritic type chest pain in the anterior chest. This is worse when he is trying to catch his breath. Minimal pain when he is taking shallow breath. Please tried aspirin at home but that hasn't helped his pain. Moving makes it worse. Appetite has been good. He hasn't had any fevers. No change in bowel or bladder habits. No complaints of nausea. No headaches or lower extremity edema. No sick contacts. No palpitations. Workup in the emergency room revealed atrial fibrillation with a rapid ventricular response. Heart rate was up to the 180s at times. It has slowed down after a diltiazem bolus. He is also wheezing and in mild respiratory distress. He has received a DuoNeb. He will be admitted for management of atrial fibrillation and bronchitis with a COPD exacerbation. Troponin level was very mildly elevated at 0.087. On admission he was started on IV antibiotic therapy after cultures have been obtained with Rocephin and azithromycin. He was given IV fluids for hydration and placed on noninvasive positive pressure ventilation for respiratory assistance. Atrial fibrillation was managed with the continuous infusion of IV diltiazem. He spontaneously converted to sinus rhythm and was taken off of the diltiazem. He had one other episode of atrial fibrillation that was relatively transient and otherwise was stable through the rest of his hospital stay. Troponin was elevated on admission, this was felt to be demand ischemia in the setting of hypoxia and respiratory compromise. It increased modestly after admission and then stabilized, it's likely that he does have a mild stable elevation in his troponin level. Respiratory status gradually improved through the hospital stay he was treated with Solu-Medrol and nebulizer therapy in addition to the antibiotics. Cultures remain negative. By the time of discharge he is completed a full course of antibiotic therapy as well as steroid therapy. Chest x-ray obtained on admission showed no obvious infiltrates and he was felt to have underlying bronchitis as a cause of his COPD exacerbation. Activity will be as tolerated and he will resume a regular diet. Home care services including home physical therapy occupational therapy will be arranged for him after discharge. He will be scheduled for follow-up appointment with his primary care provider at the [facility] within 1 week after discharge. - Patient Instructions Diet: Usual Diet as Tolerated Activity: As Tolerated Other/Special Instructions: Please schedule follow-up appointment with primary care provider within one week. - Discharge Plan *PRESCRIPTION DRUG MONITORING PROGRAM REVIEWED*: Not Applicable *COPY OF PRESCRIPTION DRUG MONITORING REPORT IN PATIENT OLIVA: Not Applicable Prescriptions/Med Rec: Albuterol/Ipratropium [DuoNeb 3.0-0.5 MG/3 ML] 3 ml NEB Q4H PRN #120 neb PRN Reason: Shortness Of Breath Home Medications: Home Meds Albuterol Sulfate [Proair Respiclick] 90 mcg IH BID PRN 05/17/16 [History] Aspirin [Halfprin] 81 mg PO DAILY PRN 05/17/16 [History] Budesonide/Formoterol [Symbicort 160-4.5 MCG] 2 inh INH BID 05/17/16 [History] Albuterol/Ipratropium [DuoNeb 3.0-0.5 MG/3 ML] 3 ml NEB Q4H PRN #120 neb [Rx] Patient Handouts: Chronic Obstructive Pulmonary Disease Exacerbation, Easy-to- Read, Acute Bronchitis, Adult, [id number] - Discharge Summary/Plan Comment DC Time >30 min.: No - Patient Data Vitals - Most Recent: Last Vital Signs Temp 96.1 F 09/30/18 11:00 Pulse 72 09/30/18 11:00 Resp 20 09/30/18 11:00 BP 123/79 09/30/18 11:00 Pulse Ox 100 09/30/18 11:00 Weight - Most Recent: 195 lb 0.017 oz Med Orders - Current: Current Medications Acetaminophen (Tylenol) 650 mg PO Q4H PRN PRN Reason: Pain (Mild 1-3)/fever Last Admin: 09/24/18 19:44 Dose: 650 mg Albuterol (Proventil Neb Soln) 2.5 mg NEB Q4H PRN PRN Reason: Shortness Of Breath/wheezing Last Admin: 09/30/18 05:08 Dose: 2.5 mg Albuterol/Ipratropium (Duoneb 3.0-0.5 Mg/3 Ml) 3 ml NEB QIDRT [facility] Last Admin: 09/30/18 10:45 Dose: 3 ml Benzonatate (Tessalon Perles) 100 mg PO TID PRN PRN Reason: Cough Last Admin: 09/29/18 21:07 Dose: 100 mg Calcium Carbonate/Glycine (Tums) 1,000 mg PO Q2H PRN PRN Reason: Indigestion Last Admin: 09/30/18 10:16 Dose: 1,000 mg Enoxaparin Sodium (Lovenox) 40 mg SUBCUT Q24H [facility] Last Admin: 09/29/18 17:02 Dose: 40 mg Guaifenesin/Dextromethorphan (Robitussin Dm) 10 ml PO Q4H PRN PRN Reason: Cough Last Admin: 09/29/18 21:08 Dose: 10 ml Ibuprofen (Motrin) 600 mg PO Q6H PRN PRN Reason: Pain/Fever Last Admin: 09/29/18 02:52 Dose: 600 mg Lorazepam (Ativan) 0.5 mg PO Q4H PRN PRN Reason: Anxiety Last Admin: 09/29/18 23:51 Dose: 0.5 mg Metoprolol Tartrate (Lopressor) 12.5 mg PO BID [facility] Last Admin: 09/30/18 08:36 Dose: 12.5 mg Morphine Sulfate (Morphine) 4 mg IVPUSH Q4H PRN PRN Reason: air hunger Last Admin: 09/25/18 22:38 Dose: 4 mg Ondansetron HCl (Zofran Odt) 4 mg PO Q6H PRN PRN Reason: Nausea able to take PO Prednisone (Prednisone) 20 mg PO DAILY [facility] Last Admin: 09/30/18 08:38 Dose: 20 mg Senna/Docusate Sodium (Senna Plus) 1 tab PO BID PRN PRN Reason: Constipation Discontinued Medications Albuterol/Ipratropium (Duoneb 3.0-0.5 Mg/3 Ml) 3 ml NEB ONETIME ONE Stop: 09/24/18 15:32 Last Admin: 09/24/18 15:39 Dose: 3 ml Azithromycin (Zithromax) 500 mg PO DAILY [facility] Last Admin: 09/27/18 09:16 Dose: 500 mg Diltiazem HCl (Diltiazem) 25 mg IVPUSH ONETIME ONE Stop: 09/24/18 15:03 Last Admin: 09/24/18 15:12 Dose: 25 mg Diltiazem HCl (Diltiazem) 5 mg IVPUSH ONETIME ONE Stop: 09/24/18 19:40 Last Admin: 09/24/18 19:56 Dose: 5 mg Enoxaparin Sodium (Lovenox) 40 mg SUBCUT DAILY [facility] Last Admin: 09/24/18 17:49 Dose: 40 mg Sodium Chloride (Normal Saline) 1,000 mls @ 250 mls/hr IV ASDIRECTED [facility] Last Admin: 09/24/18 15:12 Dose: 250 mls/hr Diltiazem HCl 100 mg/ Sodium (Chloride) 100 mls @ 5 mls/hr IV TITRATE [facility]; Protocol Last Titration: 09/25/18 06:16 Dose: 0 mg/hr, 0 mls/hr Ceftriaxone Sodium 2 gm/ (Sodium Chloride) 50 mls @ 100 mls/hr IV Q24H [facility] Last Admin: 09/28/18 17:57 Dose: 100 mls/hr Sodium Chloride (Normal Saline) 1,000 mls @ 100 mls/hr IV ASDIRECTED [facility] Last Admin: 09/26/18 06:29 Dose: 100 mls/hr Metoprolol Tartrate (Lopressor) 12.5 mg PO Q12H [facility] Last Admin: 09/25/18 22:37 Dose: 12.5 mg Pneumococcal Polyvalent Vaccine (Pneumovax 23) 0.5 ml IM .ONCE ONE Stop: 09/28/18 14:01 Last Admin: 09/28/18 16:26 Dose: 0.5 ml Prednisone (Prednisone) 40 mg PO ONETIME ONE Stop: 09/24/18 16:45 Last Admin: 09/24/18 17:47 Dose: 40 mg Prednisone (Prednisone) 20 mg PO BIDAC [facility] Last Admin: 09/29/18 07:41 Dose: 20 mg - Exam General: Reports: Alert, Oriented, Cooperative, Mild Distress Lungs: Reports: Normal Respiratory Effort, Decreased Breath Sounds, Wheezing. Denies: Rales, Rhonchi, Rub Cardiovascular: Reports: Regular Rate, Regular Rhythm, No Murmurs GI/Abdominal Exam: Soft, Non-Tender, No Organomegaly, No Distention Extremities: Non-Tender, No Pedal Edema
== END 2018-09-30 13:00 | disposition home health service (06) | DRG 308 ==
LOC: JP.ED 14:37 → JP.ICU 16:45 → JP.MS 09-27 15:51
PROVIDERS: ADMIT Internal Medicine; ATTEND Hospitalist
PROC: 5A0945Z Assistance with Respiratory Ventilation, 24-96 Consecutive Hours (ICD-10-PCS; principal; 2018-09-24)
DX: I48.91 Unspecified atrial fibrillation (principal); J96.91 Respiratory failure, unspecified with hypoxia; J44.0 Chronic obstructive pulmonary disease with (acute) lower respiratory infection; J44.1 Chronic obstructive pulmonary disease with (acute) exacerbation; I24.8 Other forms of acute ischemic heart disease; J20.9 Acute bronchitis, unspecified; Z87.891 Personal history of nicotine dependence; Z99.81 Dependence on supplemental oxygen; I10 Essential (primary) hypertension; R74.8 Abnormal levels of other serum enzymes; I34.0 Nonrheumatic mitral (valve) insufficiency; E78.00 Pure hypercholesterolemia, unspecified; Z85.89 Personal history of malignant neoplasm of other organs and systems; Z96.659 Presence of unspecified artificial knee joint; Z79.82 Long term (current) use of aspirin; Z88.8 Allergy status to other drugs, medicaments and biological substances
CPT/HCPCS: 36415; 71045; 80048; 80053; 84443; 84484; 85025; 85027; 87070; 87205; 90732; 93005; 93306; 94640; 96361; 96374; 99285-25; A9270-GY; G0009; J0696; J1650; J2270; J3490; J7030; J7050; J7620-GY